=== PATIENT | male | born 1965 | race Caucasian/White ===

== ENCOUNTER → 2019-11-15 10:20 | Outpatient (CLI) | payer OTHER, SELFPAY ==
--- NOTE | 2019-11-15 10:23 | DI.RAD.S_ITS ---
P a ROCEDURE: XR CERVICAL SPINE 2V OR 3V INDICATIONS: pain to mid trapezius with numbness/tingling to R hand. TECHNIQUE: 3 views of the cervical spine were acquired. COMPARISON: [facility] [place], [place], SPINE CERVICAL 2 OR 3VW, 06/18/2014, 16:28. FINDINGS: Bones: No fractures or subluxation to the T1 level. The lateral masses of C1 appear intact on the odontoid view. There are post surgical changes redemonstrated status post ACDF at C4-C6. There is new anterolisthesis at C3-C4 compared to the prior study, measuring approximately 5 mm. There is also increased degenerative disc disease at C3-C4 and C6-C7, with moderate degeneration at C6-C7 this is of unclear sclerosis and osteophytosis. There is mild degeneration at C3-C4. There is mild facet arthropathy which appears increased from the prior study. Soft tissues: No prevertebral soft tissue swelling. IMPRESSION: 1. New anterolisthesis at C3-C4. 2. Increased degenerative disc disease at C3-C4 and C6-C7. 3. Postsurgical changes status post ACDF at C4-C6 redemonstrated. Dictated by: Juan J Castle M.D. on 11/15/2019 at 10:10 Approved by: Juan J Castle M.D. on 11/15/2019 at 10:13
--- NOTE | 2019-11-15 10:23 | DI.RAD.S_ITS ---
PROCEDURE: XR THORACIC SPINE 3V INDICATIONS: pain to mid trapezius with numbness/tingling to R hand. TECHNIQUE: 3 views of the thoracic spine were acquired. COMPARISON: [facility], [place], XR CERVICAL SPINE 2V OR 3V, 11/15/2019, 10:44. FINDINGS: Bones: No fractures or subluxation. There is multilevel degenerative disc disease include [id number] degeneration in the mid to lower thoracic spine. Evaluation of the upper thoracic spine is limited on the lateral view. No suspicious bony lesions. 12 pairs of ribs are noted, and appear intact where visualized. Soft tissues: No paravertebral stripe thickening. IMPRESSION: 1. Multilevel degenerative disease including [id number] degeneration in the mid to lower thoracic spine. Dictated by: Juan J Castle M.D. on 11/15/2019 at 10:15 Approved by: Juan J Castle M.D. on 11/15/2019 at 10:16
== END ==
PROVIDERS: PCP Family Medicine; Referring Provider Physician Assistant; Visit Provider Physician Assistant
DX: M89.8X1 Other specified disorders of bone, shoulder (principal); M50.31 Other cervical disc degeneration, high cervical region; M43.12 Spondylolisthesis, cervical region; M51.34 Other intervertebral disc degeneration, thoracic region; M25.511 Pain in right shoulder; R20.0 Anesthesia of skin; Z98.1 Arthrodesis status
CPT/HCPCS: 72040; 72072